=== PATIENT | male | born 1985 | race Two or more races ===

== ENCOUNTER 2016-10-02 21:38 | Emergency (ER) | payer SELFPAY ==
[~2016-10-02] VITALS: Ht 167.6 cm; Wt 86.2 kg
[2016-10-02 21:38] VITALS: BP 127/79
--- NOTE | 2016-10-02 22:17 | NUR ---
"FOUND WANDERING AROUND IN THE STREET DRUNK.. LEFT HIM"
--- NOTE | 2016-10-02 22:22 | NUR ---
MICHELLE #20 IV ACCESS. BLOOD SAMPLE COLLECTED SENT TO LAB
[2016-10-02] MEDS ORDERED: ONDANSETRON HCL/PF 4 MG/2 ML VIAL ONE (22:24)
[2016-10-02] MEDS ORDERED: ONDANSETRON HCL/PF 4 MG/2 ML VIAL IVP ONE (22:30)
[2016-10-02] MEDS ORDERED: IV NS 0.9% 1,000 ML BAG IV ONE (22:30)
[2016-10-02 22:35] LABS: BASOPHILS % (AUTO) 0.7 % (0.0-2.0); EOSINOPHILS # (AUTO) 0.1 /CMM (0.0-0.7); EOSINOPHILS % (AUTO) 2.2 % (0.0-6.0); HEMATOCRIT 48 % (39-51); LYMPHOCYTES # (AUTO) 3.3 /CMM (0.8-4.8); MEAN CORPUSCULAR HEMOGLOBIN 31 PG (26.0-33.0); MEAN CORPUSCULAR HGB CONC 34 g/dl (31.0-36.0); MEAN CORPUSCULAR VOLUME 91 fL (80-96); MONOCYTES # (AUTO) 0.4 /CMM (0.1-1.30); MONOCYTES % (AUTO) 6.5 % (2.0-12.0); NEUTROPHILS # (AUTO) 2.5 /CMM (1.8-8.9); NEUTROPHILS % (AUTO) 38.6 % (43.0-81.0); PLATELET COUNT (AUTO) 235 /CMM (150-450); RDW COEFFICIENT OF VARIATION 12.7 (11.5-15.0); RED BLOOD CELL COUNT(AUTO) 5.24 MIL/uL (4.5-6.0); WHITE BLOOD COUNT (AUTO) 6.4 K/uL (4.3-11.0)
[2016-10-02 22:40] LABS: CALCIUM, SERUM 8.2 mg/dL (8.5-10.1); CREATININE 0.8 mg/dL (0.6-1.3); POTASSIUM 3.2 mmol/L (3.5-5.1)
[2016-10-02 22:45] LABS: ALBUMIN 4.5 g/dL (3.4-5.0); BILIRUBIN,DIRECT 0.1 mg/dL (0.0-0.2); BILIRUBIN,TOTAL 0.3 mg/dL (0.2-1.0); TOTAL PROTEIN, SERUM 7.6 g/dL (6.4-8.2)
[2016-10-02 22:46] LABS: SALICYLATE 2.6 mg/dL (2.8-20.0)
--- NOTE | 2016-10-02 23:28 | NUR ---
GAVE REPORT TO KAMILA FOR ANA
--- NOTE | 2016-10-03 02:31 | NUR ---
pt sleeping in gurney. no signs of distress. pt easily arousable. will cont to monitor pt.
--- NOTE | 2016-10-03 04:26 | NUR ---
Patient eloped from facility. ER MD notified. IV found on gurney, catheter intact.
== END 2016-10-03 04:31 | disposition left against medical advice (07) ==
LOC: ER 21:40
DX: F10.129 Alcohol abuse with intoxication, unspecified (principal)
CPT/HCPCS: 36415; 80048-TC; 80076-TC; 85025-TC; A4606; G0480; J2405; J7030; Z7610

== ENCOUNTER → 2019-10-31 | Emergency (ER) | payer OTHER ==
[~2019-10-31] VITALS: Ht 175.3 cm; Wt 86.2 kg
[2019-10-31 14:34] VITALS: BP 148/94
--- NOTE | 2019-10-31 15:02 | NUR ---
PT GAVE HIS JT'Kylie # [phone]
--- NOTE | 2019-10-31 15:50 | NUR ---
Sleeping soundly respirations even/unlabored NO obvious distress
--- NOTE | 2019-10-31 17:17 | NUR ---
Raul kelsey in [facility] - 10/31/19 at 1719 by JONATHAN PT ELOPED OUT OF THE ER.
--- NOTE | 2019-10-31 17:18 | NUR ---
Raul kelsey in ED - 10/31/19 at 1719 by JONATHAN MADE AWARE THAT PT ELOPED OF THE ER.
--- NOTE | 2019-10-31 17:19 | NUR ---
PT AMBULATORY ON STEADY GAIT. NAD NOTED.
== END | disposition home or self-care (01) ==
LOC: ER 14:21
DX: S00.81XA Abrasion of other part of head, initial encounter (principal); F10.129 Alcohol abuse with intoxication, unspecified; R51 Headache; Y90.9 Presence of alcohol in blood, level not specified; W22.8XXA Striking against or struck by other objects, initial encounter; Y93.39 Activity, other involving climbing, rappelling and jumping off; Y92.89 Other specified places as the place of occurrence of the external cause; Y99.8 Other external cause status
CPT/HCPCS: 70450; 99284; A6403